=== PATIENT | male | born 1970 | race Caucasian/White ===

== ENCOUNTER → 2020-02-16 | Outpatient (CLI) | payer BC ==
[2013-04-11 18:13] VITALS: BP 112/68
[~2020-02-16] MED LIST: CEPHALEXIN500 M1 PO
[2020-02-16 08:51] LABS: EOS # 0.1 (0.04-0.40); EOS % 2.9 % (0.0-4.0); HEMATOCRIT 46.6 % (42.0-52.0); HEMOGLOBIN 16.1 g/dL (13.5-18.0); LYMPH# 1.5 (1.50-4.00); MEAN CELL VOLUME 86 fl (78-100); MEAN CORPUSCULAR HEMOGLOBIN 30 pg (27-31); MEAN CORPUSCULAR HGB CONC 35 g/dL (33-37); MEAN PLATELET VOLUME 9.2 fl (7.4-10.4); MONO # 0.5 (0.20-0.80); NEU # 2.3 (1.40-6.50); PLATELET COUNT 229 K/mm3 (130-400); RED BLOOD COUNT 5.41 M/mm3 (4.20-5.60); RED CELL DISTRIBUTION WIDTH 12.5 % (11.5-14.5); WHITE BLOOD COUNT 4.5 K/mm3 (4.8-10.8)
[2020-02-16 09:07] LABS: ALBUMIN 4.4 g/dL (3.5-5.0)
[2020-02-16 09:08] LABS: CALCIUM 9.1 mg/dL (8.3-10.5)
[2020-02-16 09:09] LABS: TOTAL PROTEIN 7.4 g/dL (6.4-8.3)
[2020-02-16 09:11] LABS: TOTAL BILIRUBIN 0.8 mg/dL (0.2-1.2)
== END ==
LOC: LAB 08:27
DX: R35.1 Nocturia (principal); R53.83 Other fatigue

== ENCOUNTER → 2021-10-02 | Day surgery (SDC) | payer BC | END | disposition home or self-care (01) | LOC: MSO 07:18 | DX: Z12.11 Encounter for screening for malignant neoplasm of colon (principal); K63.5 Polyp of colon | CPT/HCPCS: 00811; J2704; J7120 ==